=== PATIENT | male | born 1990 | race Asian ===

== ENCOUNTER 2022-07-20 20:15 | Emergency (ER) | payer OTHER ==
[~2022-07-20] VITALS: Ht 170.2 cm; Wt 79.4 kg
[2022-07-20 22:45] VITALS: BP 124/82; TEMP 98.7
== END 2022-07-20 22:50 | disposition home or self-care (01) ==
LOC: ED 20:15
PROC: 0CQ10ZZ Repair Lower Lip, Open Approach (ICD-10-PCS; principal; 2022-07-20)
PROC: 0CQ00ZZ Repair Upper Lip, Open Approach (ICD-10-PCS; 2022-07-20)
PROC: 0HQ1XZZ Repair Face Skin, External Approach (ICD-10-PCS; 2022-07-20)
PROC: 2W3CX1Z Immobilization of Right Lower Arm using Splint (ICD-10-PCS; 2022-07-20)
DX: S00.03XA Contusion of scalp, initial encounter (principal); S01.511A Laceration without foreign body of lip, initial encounter; S01.512A Laceration without foreign body of oral cavity, initial encounter; J32.8 Other chronic sinusitis; Y04.2XXA Assault by strike against or bumped into by another person, initial encounter; Y92.89 Other specified places as the place of occurrence of the external cause
CPT/HCPCS: 99283; J2001